=== PATIENT | female | born 1990 | race American Indian/Alaskan Native ===

== ENCOUNTER 2020-10-13 19:01 | Emergency (ER) | payer BC, MEDICAID ==
[2020-10-13] MEDS ORDERED: ASPIRIN 325 MG TAB PO ONE (21:02)
--- NOTE | 2020-10-13 21:19 | Emergency Department Report ---
ED Chest Pain HPI - General Chief Complaint: Chest Pain Stated Complaint: BP HIGH/FATIGUE/CP/HEADACHE PUI?: No Time Seen by Provider: 10/13/20 21:00 Source: patient Mode of arrival: Ambulatory Limitations: No Limitations - History of Present Illness Initial Comments: This is a 30-year-old female with past medical history uncontrolled hypertension who presents to the ED complaining of mid nonradiating localized chest pain x 3 days. Patient denies any recent URI, fever, coughing, chills, shortness of breath. Patient states that pain is worsened when she lays down at night. Patient states that she was taking blood pressure medication some years ago and stopped but a couple years ago now. Patient describes pain as sharp intermittent localized to the mid chest. She denies radiation elsewhere. She denies shortness of breath. She denies nausea vomiting abdominal pain or any other problems. MD Complaint: chest pain - Related Data Home Medications Medication Instructions Recorded Confirmed Last Taken hydroCHLOROthiazide 25 mg PO QDAY 07/23/14 04/27/15 Unknown [Hydrochlorothiazide] Previous Rx's Medication Instructions Recorded Last Taken Type Naproxen [Naprosyn] 500 mg PO BID #30 tablet 10/13/20 Unknown Rx amLODIPine 10 mg PO DAILY #60 tab 10/13/20 Unknown Rx Allergies Allergy/AdvReac Type Severity Reaction Status Date / Time No Known Allergies Allergy Unverified 07/23/14 21:44 Heart Score - HEART Score History: Slightly suspicious EKG: Normal Age: < 45 Risk factors: 1-2 risk factors Troponin: < normal limit HEART Score: 1 ED Review of Systems ROS: Stated complaint: BP HIGH/FATIGUE/CP/HEADACHE Other details as noted in HPI Comment: All other systems reviewed and negative ED Past Medical Hx - Past Medical History Previous Medical History?: Yes Hx Hypertension: Yes Hx Diabetes: No Hx Deep Vein Thrombosis: No Hx Renal Disease: No Hx Sickle Cell Disease: No Hx Seizures: No Hx Asthma: No Hx HIV: No Additional medical history: high cholestrol - Surgical History Past Surgical History?: Yes Additional Surgical History: x1 - Social History Smoking Status: Never Smoker - Medications Home Medications: Home Medications Medication Instructions Recorded Confirmed Last Taken Type hydroCHLOROthiazide 25 mg PO QDAY 07/23/14 04/27/15 Unknown History [Hydrochlorothiazide] Naproxen [Naprosyn] 500 mg PO BID #30 tablet 10/13/20 Unknown Rx amLODIPine 10 mg PO DAILY #60 tab 10/13/20 Unknown Rx ED Physical Exam - General Limitations: No Limitations General appearance: alert, in no apparent distress - Head Head exam: Present: atraumatic, normocephalic - Eye Eye exam: Present: normal appearance, PERRL - ENT ENT exam: Present: mucous membranes moist - Neck Neck exam: Present: normal inspection - Respiratory Respiratory exam: Present: normal lung sounds bilaterally, chest wall tenderness (Mild tenderness to palpation of mid costal). Absent: respiratory distress, wheezes, rales - Cardiovascular Cardiovascular Exam: Present: regular rate, normal rhythm. Absent: systolic murmur, diastolic murmur, rubs, gallop - GI/Abdominal GI/Abdominal exam: Present: soft, normal bowel sounds. Absent: distended, tenderness - Extremities Exam Extremities exam: Present: normal inspection - Back Exam Back exam: Present: normal inspection, full ROM. Absent: tenderness, CVA tenderness (R), CVA tenderness (L) - Neurological Exam Neurological exam: Present: alert, oriented X3, normal gait - Psychiatric Psychiatric exam: Present: normal affect, normal mood - Skin Skin exam: Present: warm, dry, intact, normal color. Absent: rash ED Course Vital Signs 10/13/20 20:48 Temperature 97.0 F L Pulse Rate 78 Respiratory 14 Rate Blood Pressure 167/113 O2 Sat by Pulse 99 Oximetry HUNTER score - Hunter Score Age > 65: (0) No Aspirin use within the Past 7 Days: (0) No 3 or more CAD Risk Factors: (0) No 2 or more Angina events in past 24 hrs: (0) No Known CAD with more than 50% Stenosis: (0) No Elevated Cardiac Markers: (0) No ST Deviation Greater than 0.5mm: (0) No HUNTER Score: 0 ED Medical Decision Making - Lab Data Result diagrams: 10/13/20 21:10 10/13/20 21:10 Laboratory Last Values WBC 6.1 K/mm3 (4.5-11.0) 10/13/20 21:10 RBC 4.70 M/mm3 (3.65-5.03) 10/13/20 21:10 Hgb 13.4 gm/dl (10.1-14.3) 10/13/20 21:10 Hct 39.8 % (30.3-42.9) 10/13/20 21:10 MCV 85 fl (79-97) 10/13/20 21:10 MCH 29 pg (28-32) 10/13/20 21:10 MCHC 34 % (30-34) 10/13/20 21:10 RDW 13.5 % (13.2-15.2) 10/13/20 21:10 Plt Count 205 K/mm3 (140-440) 10/13/20 21:10 Lymph % (Auto) 43.8 % (13.4-35.0) H 10/13/20 21:10 [place] % (Auto) 8.0 % (0.0-7.3) H 10/13/20 21:10 Eos % (Auto) 1.9 % (0.0-4.3) 10/13/20 21:10 Baso % (Auto) 0.5 % (0.0-1.8) 10/13/20 21:10 Lymph # (Auto) 2.7 K/mm3 (1.2-5.4) 10/13/20 21:10 [place] # (Auto) 0.5 K/mm3 (0.0-0.8) 10/13/20 21:10 Eos # (Auto) 0.1 K/mm3 (0.0-0.4) 10/13/20 21:10 Baso # (Auto) 0.0 K/mm3 (0.0-0.1) 10/13/20 21:10 Seg Neutrophils % 45.8 % (40.0-70.0) 10/13/20 21:10 Seg Neutrophils # 2.8 K/mm3 (1.8-7.7) 10/13/20 21:10 Sodium 137 mmol/L (137-145) 10/13/20 21:10 Potassium 3.9 mmol/L (3.6-5.0) 10/13/20 21:10 Chloride 103.1 mmol/L (98-107) 10/13/20 21:10 Carbon Dioxide 28 mmol/L (22-30) 10/13/20 21:10 Anion Gap 10 mmol/L 10/13/20 21:10 BUN 10 mg/dL (7-17) 10/13/20 21:10 Creatinine 0.7 mg/dL (0.6-1.2) 10/13/20 21:10 Estimated GFR > 60 ml/min 10/13/20 21:10 BUN/Creatinine Ratio 14 % 10/13/20 21:10 Glucose 102 mg/dL (65-100) H 10/13/20 21:10 Calcium 9.6 mg/dL (8.4-10.2) 10/13/20 21:10 Troponin T < 0.010 ng/mL (0.00-0.029) 10/13/20 21:10 - EKG Data EKG shows normal: sinus rhythm Rate: normal - EKG Data Interpretation: normal EKG - Radiology Data Radiology results: report reviewed, image reviewed No acute cardio pulmonary abnormality - Medical Decision Making 30-year-old female presents to ED with chest wall pain All labs are within normal limits, troponin negative, chest x-ray negative, EKG within normal limits. Patient received clonidine in the ED for blood pressure reduction Discussed all findings with the patient. Discussed with patient to follow-up with primary care physician and continue her blood pressure medication and to take it daily. Vital signs are normal she is in no acute or respiratory distress. I discussed with patient if she has any worsening or new symptoms she may return to ED immediately. Patient understands all instructions and will follow-up. Critical care attestation.: If time is entered above; I have spent that time in minutes in the direct care of this critically ill patient, excluding procedure time. ED Disposition Clinical Impression: Chest pain, Costochondral pain, Chest wall pain Disposition: - TO HOME OR SELFCARE Is pt being admited?: No Does the pt Need Aspirin: No Condition: Stable Instructions: Chest Pain (ED), Nonspecific Chest Pain, Adult, Chest Wall Pain Additional Instructions: Make sure to follow up with the primary care physician as discussed. Take all your medications as you've been prescribed. If you have any worsening symptoms or develop new symptoms please return to ED immediately. Prescriptions: amLODIPine 10 mg PO DAILY #60 tab Naproxen [Naprosyn] 500 mg PO BID #30 tablet Referrals: PRIMARY CARE, [Primary Care Provider] - 3-5 Days [facility] [Provider Group] - 3-5 Days [facility] [Outside] - 3-5 Days [facility] [Outside] - 3-5 Days Forms: Work/School Release Form(ED)
[2020-10-13 21:27] LABS: Basophils % (Auto) 0.5 % (0.0-1.8); Eosinophils # (Auto) 0.1 K/mm3 (0.0-0.4); Eosinophils % (Auto) 1.9 % (0.0-4.3); Hematocrit 39.8 % (30.3-42.9); Hemoglobin 13.4 gm/dl (10.1-14.3); Lymphocytes # (Auto) 2.7 K/mm3 (1.2-5.4); Lymphocytes % (Auto) 43.8 % (13.4-35.0); Mean Corpuscular HGB Conc 34 % (30-34); Mean Corpuscular Volume 85 fl (79-97); Monocytes # (Auto) 0.5 K/mm3 (0.0-0.8); Platelet Count 205 K/mm3 (140-440); Red Cell Distribution Width 13.5 % (13.2-15.2)
[2020-10-13] MEDS ORDERED: cloNIDine 0.1 MG TAB PO ONE (21:34)
[2020-10-13 21:42] LABS: Blood Urea Nitrogen 10 mg/dL (7-17); Calcium 9.6 mg/dL (8.4-10.2); Hemolysis Index 20
[2020-10-13 21:45] LABS: BUN/Creatinine Ratio 14
--- NOTE | 2020-10-13 21:59 | XRay Report ---
CHEST 1 VIEW 10/13/2020 8:54 PM INDICATION / CLINICAL INFORMATION: Chest Pain. COMPARISON: None available. FINDINGS: SUPPORT DEVICES: None. HEART / MEDIASTINUM: No significant abnormality. LUNGS / PLEURA: No significant pulmonary or pleural abnormality. No pneumothorax. ADDITIONAL FINDINGS: No significant additional findings. IMPRESSION: No acute cardiopulmonary abnormality. Signer Name: Mahendra Ellison MD Signed: 10/13/2020 9:55 PM Workstation Name: [id number]
[2020-10-13 23:53] VITALS: BP 139/93
== END 2020-10-13 23:52 | disposition home or self-care (01) ==
LOC: ED 19:01
DX: R07.89 Other chest pain (principal); I10 Essential (primary) hypertension; E78.00 Pure hypercholesterolemia, unspecified; Z98.890 Other specified postprocedural states; Z79.899 Other long term (current) drug therapy
CPT/HCPCS: 36415; 71045; 80048; 84484; 85025; 93005

== ENCOUNTER 2021-06-30 20:09 | Emergency (ER) | payer BC ==
[2021-06-30 21:39] VITALS: BP 163/112
[2021-06-30] MEDS ORDERED: cloNIDine 0.2 MG TAB PO STA (22:45)
--- NOTE | 2021-06-30 23:06 | Emergency Department Report ---
ED ENT HPI - General Chief complaint: Earache Stated complaint: EAR DRAINAGE ADN RECENT BP 140/103 Time Seen by Provider: 06/30/21 21:45 Source: patient Mode of arrival: Ambulatory Limitations: No Limitations - History of Present Illness MD complaint: ear pain -: Gradual, days(s) (3) Location: L ear Severity: moderate Quality: aching, dull Consistency: constant Improves with: none Worsens with: none Associated Symptoms: discharge from ear. denies: gum swelling, toothache, tinnitus, hearing loss, rhinorrhea - Related Data Home Medications Medication Instructions Recorded Confirmed Last Taken hydroCHLOROthiazide 25 mg PO QDAY 07/23/14 04/27/15 Unknown [Hydrochlorothiazide] Previous Rx's Medication Instructions Recorded Last Taken Type Naproxen [Naprosyn] 500 mg PO BID #30 tablet 10/13/20 Unknown Rx Ciprofloxacin HCl 500 mg PO BID #20 tablet 06/30/21 Unknown Rx Neomy/Polymyx B/Hc (Otic) Soln 4 drops OT TID #1 bottle 06/30/21 Unknown Rx [Cortisporin (Otic) Soln] amLODIPine 10 mg PO DAILY #60 tab 06/30/21 Unknown Rx Allergies Allergy/AdvReac Type Severity Reaction Status Date / Time No Known Allergies Allergy Verified 06/30/21 21:37 ED Dental HPI - General Chief complaint: Earache Stated complaint: EAR DRAINAGE ADN RECENT BP 140/103 Time Seen by Provider: 06/30/21 21:45 Source: patient Mode of arrival: Ambulatory Limitations: No Limitations - Related Data Home Medications Medication Instructions Recorded Confirmed Last Taken hydroCHLOROthiazide 25 mg PO QDAY 07/23/14 04/27/15 Unknown [Hydrochlorothiazide] Previous Rx's Medication Instructions Recorded Last Taken Type Naproxen [Naprosyn] 500 mg PO BID #30 tablet 10/13/20 Unknown Rx Ciprofloxacin HCl 500 mg PO BID #20 tablet 06/30/21 Unknown Rx Neomy/Polymyx B/Hc (Otic) Soln 4 drops OT TID #1 bottle 06/30/21 Unknown Rx [Cortisporin (Otic) Soln] amLODIPine 10 mg PO DAILY #60 tab 06/30/21 Unknown Rx Allergies Allergy/AdvReac Type Severity Reaction Status Date / Time No Known Allergies Allergy Verified 06/30/21 21:37 ED Review of Systems ROS: Stated complaint: EAR DRAINAGE ADN RECENT BP 140/103 Other details as noted in HPI Comment: All other systems reviewed and negative ED Past Medical Hx - Past Medical History Previous Medical History?: No Hx Hypertension: Yes Hx Diabetes: No Hx Deep Vein Thrombosis: No Hx Renal Disease: No Hx Sickle Cell Disease: No Hx Seizures: No Hx Asthma: No Hx HIV: No Additional medical history: high cholestrol - Surgical History Past Surgical History?: No Additional Surgical History: x1 - Social History Smoking Status: Never Smoker - Medications Home Medications: Home Medications Medication Instructions Recorded Confirmed Last Taken Type hydroCHLOROthiazide 25 mg PO QDAY 07/23/14 04/27/15 Unknown History [Hydrochlorothiazide] Naproxen [Naprosyn] 500 mg PO BID #30 tablet 10/13/20 Unknown Rx Ciprofloxacin HCl 500 mg PO BID #20 tablet 06/30/21 Unknown Rx Neomy/Polymyx B/Hc (Otic) Soln 4 drops OT TID #1 bottle 06/30/21 Unknown Rx [Cortisporin (Otic) Soln] amLODIPine 10 mg PO DAILY #60 tab 06/30/21 Unknown Rx ED Physical Exam - General Limitations: No Limitations General appearance: alert, in no apparent distress - Head Head exam: Present: atraumatic, normocephalic - Eye Eye exam: Present: normal appearance, PERRL, EOMI Pupils: Present: normal accommodation - ENT ENT exam: Present: normal exam, normal orophraynx, mucous membranes moist. Absent: TM's normal bilaterally (Tenderness to the external ear canal with erythema mild swelling no exudate. Eardrums intact normal light reflex normal portions are normal pars flaccida) - Neck Neck exam: Present: normal inspection, full ROM. Absent: meningismus, lymphadenopathy, thyromegaly - Respiratory Respiratory exam: Present: normal lung sounds bilaterally. Absent: respiratory distress, rales, rhonchi, accessory muscle use, decreased breath sounds - Cardiovascular Cardiovascular Exam: Present: regular rate, normal rhythm. Absent: systolic murmur, diastolic murmur, rubs, gallop - GI/Abdominal GI/Abdominal exam: Present: soft, normal bowel sounds - Extremities Exam Extremities exam: Present: normal inspection, normal capillary refill - Back Exam Back exam: Present: normal inspection. Absent: CVA tenderness (R), CVA tenderness (L) - Neurological Exam Neurological exam: Present: alert, oriented X3, CN II-XII intact - Psychiatric Psychiatric exam: Present: normal affect, normal mood. Absent: anxious, manic - Skin Skin exam: Present: warm, dry, intact, normal color. Absent: rash, diaphoretic, erythema ED Course Vital Signs 06/30/21 06/30/21 06/30/21 21:16 21:34 21:37 Temperature 99.5 F 100.2 F H Pulse Rate 114 H 104 H 103 H Respiratory 18 20 Rate Blood Pressure 165/110 165/110 163/112 O2 Sat by Pulse 100 100 100 Oximetry 06/30/21 23:31 Temperature Pulse Rate Respiratory Rate Blood Pressure O2 Sat by Pulse 98 Oximetry Critical care attestation.: If time is entered above; I have spent that time in minutes in the direct care of this critically ill patient, excluding procedure time. ED Disposition Clinical Impression: Otitis externa, HTN (hypertension) Disposition: HOME / SELF CARE / HOMELESS Is pt being admited?: No Does the pt Need Aspirin: No Condition: Stable Instructions: Ear Drops, Adult, Otitis Externa, Hypertension (ED) Prescriptions: amLODIPine 10 mg PO DAILY #60 tab Ciprofloxacin HCl 500 mg PO BID #20 tablet Neomy/Polymyx B/Hc (Otic) Soln [Cortisporin (Otic) Soln] 4 drops OT TID #1 bottle Referrals: ENEDELIA GRAMAJO MD [Primary Care Provider] - 3-5 Days
== END 2021-06-30 23:32 | disposition home or self-care (01) ==
LOC: ED 20:09
DX: H60.92 Unspecified otitis externa, left ear (principal); I10 Essential (primary) hypertension; E78.00 Pure hypercholesterolemia, unspecified; Z98.890 Other specified postprocedural states
CPT/HCPCS: 99282